=== PATIENT | female | born 1960 | race Two or more races ===

== ENCOUNTER 2018-03-07 20:30 | Inpatient (IN) ==
[2018-03-08] MEDS ORDERED: Acetaminophen 325 MG Tablet PO PRN (03:58)
[2018-03-08] MEDS ORDERED: Chlorhexidine Gluconate 2% 1 Pack (2 Cloths) TOPICAL PRN (04:00)
[2018-03-08] MEDS: Chlorhexidine Gluconate 2% 1 Pack (2 Cloths) TOPICAL SCH (04:28)
[2018-03-08] MEDS: MethylPREDNISolone Sod Succinate Inj 40 MG/ML Vial IV.PUSH SCH ×3 (05:27→22:17)
--- NOTE | 2018-03-08 05:44 | P.HPIM ---
History of Present Illness Service: [facility] Primary Care Physician: UNKNOWN Chief Complaint: dyspnea History of Present Illness: 58 y/o female with a history of asthma, anxiety, asthma, depression, hypertension, hypercholesterolemia and vertigo presented to the ED with complaints of dyspnea and chest pressure for the past day. She states she just felt like she could not catch her breath. She has a non productive cough, and increase chest pressure with the cough. She denies any associated fever, chills , nausea or vomiting. She states her pcp prescribed her a nebulizer but she has not picked it up and she had no relief from her inhaler. She had a similar event last year where she was hospitalized but has not followed with a electronic field service engineer. Review of Systems All other systems reviewed negative except as stated in [facility] - History History Provided By: Patient - Medical / Surgical Hx Neg / Unobtainable Surgical History: No Previous Surgery - Medical History Medical History: Medical History (Last Updated 03/08/18 @ 05:32 by EMETERIO Manzano) No significant past surgical history Anxiety Asthma Depression Hypercholesterolemia Hypertension Thyroid disease Vertigo - Surgical History Surgical History: Surgical History (Last Updated 03/08/18 @ 05:32 by EMETERIO Manzano) No significant past surgical history - Family History Family History: Family History (Last Updated 03/08/18 @ 05:33 by EMETERIO Manzano) Mother Colon cancer Father Lung cancer - Social History I have reviewed the patient's Social History: Yes - Tobacco History Second Hand Smoke Exposure: No Smoking Status: Never smoker - Alcohol History How Often Do You Have a Drink Containing Alcohol: Never - Substance Use History Substance History: No History of Abuse Medications and Allergies Active Medications: Active Medications Acetaminophen (Tylenol) 650 mg PO Q4H PRN PRN Reason: Temp > 100.4 Albuterol (Duoneb Neb (Amado)) 1 ampul NEB Q6HR WHILE AWAKE NEB AMADO Albuterol (Duoneb Neb (Prn)) 1 ampul NEB Q2HR NEB PRN PRN Reason: sob Chlorhexidine Gluconate (Chlorhexidine 2% Cloth) 3 pack TOPICAL DAILY@0400 AMADO Stop: 03/13/18 03:59 Last Admin: 03/08/18 04:28 Dose: 3 pack Chlorhexidine Gluconate (Chlorhexidine 2% Cloth) 3 pack TOPICAL DAILY@0400 PRN PRN Reason: Extra cloth needed Stop: 03/13/18 03:59 Methylprednisolone Sodium Succinate (Solumedrol Inj) 40 mg IV.PUSH Q8HR AMADO Ondansetron HCl (Zofran Inj) 4 mg IV.PUSH Q6H PRN PRN Reason: NAUSEA OR VOMITING Allergies Allergy/AdvReac Type Severity Reaction Status Date / Time No Known Allergies Allergy Verified 03/07/18 20:59 Home Medications Medication Instructions Recorded Confirmed Type aspirin 81 mg PO DAILY 03/07/18 03/07/18 History calcium carbonate-vit D3-min 1 tab PO BID 03/07/18 03/07/18 History carvedilol 12.5 mg PO BID 03/07/18 03/07/18 History cetirizine 10 mg PO DAILY 03/07/18 03/07/18 History cholecalciferol (vitamin D3) 50,000 unit PO QWEEK 03/07/18 03/07/18 History clonazepam 1 mg PO BID 03/07/18 03/07/18 History ergocalciferol (vitamin D2) 50,000 unit PO QWEEK 03/07/18 03/07/18 History furosemide 20 mg PO DAILY 03/07/18 03/07/18 History hydralazine 10 mg PO QID 03/07/18 03/07/18 History hydroxyzine pamoate 50 mg PO QID 03/07/18 03/07/18 History levothyroxine 50 mcg PO DAILY 03/07/18 03/07/18 History losartan 100 mg PO DAILY 03/07/18 03/07/18 History lurasidone [Latuda] 20 mg PO DAILY 03/07/18 03/07/18 History meclizine 12.5 mg PO TID PRN 03/07/18 03/07/18 History omeprazole 20 mg PO DAILY 03/07/18 03/07/18 History simvastatin 40 mg PO QPM 03/07/18 03/07/18 History Exam Vital signs: Vital Signs 03/08/18 03:34 03/08/18 03:38 03/08/18 04:00 Temperature 98.4 F Pulse Rate 74 71 Respiratory Rate 22 22 Blood Pressure 146/82 H Pulse Oximetry 96 96 98 Intake & Output 03/07/18 03/07/18 03/08/18 06:59 18:59 06:59 Weight 107.1 kg Other: Weight On Admission 107.1 kg Narrative: GENERAL: This is a well-nourished, well-developed patient, in no apparent distress. CARDIOVASCULAR: Regular rate and rhythm without murmurs, gallops, or rubs. RESPIRATORY: Diminished Breath sounds equal bilaterally. No wheezes, rales, or rhonchi. GASTROINTESTINAL: Abdomen soft, non-tender, nondistended. Normal active bowel sounds MUSCULOSKELETAL: Extremities without clubbing, cyanosis, or edema. NEURO: Alert & Oriented x4 to person, place, time, situation. Moves all ext x4 Caprini VTE Risk Assessment Caprini VTE Risk Assessment: Moderate/High Risk (score >= 2) Caprini Risk Assessment Model: Point Value = 1 Point Value = 2 Point Value = 3 Point Value = 5 Age 41-60 Minor surgery BMI > 25 kg/m2 Swollen legs Varicose veins or History of unexplained or recurrent spontaneous Oral contraceptives or hormone replacement Sepsis (< 1 month) Serious lung disease, including pneumonia (< 1 month) Abnormal pulmonary function Acute myocardial infarction Congestive heart failure (< 1 month) History of inflammatory bowel disease Medical patient at bed rest Age 61-74 Arthroscopic surgery Major open surgery (> 45 min) Laparoscopic surgery (> 45 min) Malignancy Confined to bed (> 72 hours) Immobilizing plaster cast Central venous access Age >= 75 History of VTE Family history of VTE Factor V Leiden Prothrombin [id number] Lupus anticoagulant Anticardiolipin antibodies Elevated serum homocysteine Heparin-induced thrombocytopenia Other congenital or acquired thrombophilia Stroke (< 1 month) Elective arthroplasty Hip, pelvis, or leg fracture Acute spinal cord injury (< 1 month) Prophylaxis Regimen: Total Risk Factor Score Risk Level Prophylaxis Regimen 0-1 Low Early ambulation 2 Moderate Order ONE of the following: *Sequential Compression Device (SCD) *Heparin 5000 units SQ BID 3-4 Higher Order ONE of the following medications: *Heparin 5000 units SQ TID *Enoxaparin/Lovenox 40 mg SQ daily (WT < 150 kg, CrCl > 30 mL/min) *Enoxaparin/Lovenox 30 mg SQ daily (WT < 150 kg, CrCl > 10-29 mL/min) *Enoxaparin/Lovenox 30 mg SQ BID (WT < 150 kg, CrCl > 30 mL/min) AND/OR *Sequential Compression Device (SCD) 5 or more Highest Order ONE of the following medications: *Heparin 5000 units SQ TID (Preferred with Epidurals) *Enoxaparin/Lovenox 40 mg SQ daily (WT < 150 kg, CrCl > 30 mL/min) *Enoxaparin/Lovenox 30 mg SQ daily (WT < 150 kg, CrCl > 10-29 mL/min) *Enoxaparin/Lovenox 30 mg SQ BID (WT < 150 kg, CrCl > 30 mL/min) AND *Sequential Compression Device (SCD) Assessment and Plan - Plan 58 y/o female with a history of asthma, anxiety, asthma, depression, hypertension, hypercholesterolemia and vertigo presented to the ED with complaints of dyspnea and chest pressure for the past day. Asthma exacerbation -Solumedrol IV -Consult to pulmonology for evaluation -Duonebs -O2 as needed Chest pain, atypical, likely due to asthma, r/o acs troponin .02 -Serial troponin and ekgs Hypertension urgency, likely due to missed medication -Patient given IV Apresoline in ED -Resume home medications when med rec is complete -Monitor vitals and telemetry DVT prophylaxis: Heparin Discussed Condition With: Patient and RN H&P: Quality - VTE Deep Vein Thrombosis/Pulmonary Embolism Present on Admission: No
[2018-03-08 05:45] LABS: Creatine Kinase 110 U/L (26-192)
[2018-03-08] MEDS: Heparin - SQ 10,000 UNITS/ML Vial SQ SCH ×2 (09:19→20:45)
[2018-03-08 12:12] LABS: Creatine Kinase 110 U/L (26-192)
[2018-03-08] MEDS: Azithromycin Inj 500 MG in Sodium Chlor 0.9% Inj 250 ML IV.SIG SCH (15:42)
--- NOTE | 2018-03-08 16:11 | P.PNADD ---
Addendum to Inpatient Note Reason for Addendum: Additional Documentation Additional information: Patient seen Is in no acute distress while resting, has tight breath sounds bilaterally with profound wheezing heard, minimal conversive dyspnea Pulmonology has seen the patient, continue IV steroids, may need a few more days
[2018-03-08] MEDS ORDERED: Dextrose 50% in Water 50 ML Vial IV.PUSH PRN (18:43)
[2018-03-08] MEDS: Budesonide-Formoterol 160/4.5 MCG 6 GM Inhaler INH SCH (20:45)
[2018-03-08] MEDS: Insulin NovoLOG Aspart Correctional Sugar Inj SQ SCH (20:46)
[2018-03-09] MEDS: Chlorhexidine Gluconate 2% 1 Pack (2 Cloths) TOPICAL SCH (03:56)
[2018-03-09] MEDS: MethylPREDNISolone Sod Succinate Inj 40 MG/ML Vial IV.PUSH SCH ×3 (05:59→21:47)
[2018-03-09 07:53] LABS: Baso % (Auto) 0.1 % (0.0-2.0); Hematocrit 38.5 % (35.0-46.0); Hemoglobin 12.6 gm/dL (11.6-15.3); Lymph # (Auto) 1.9 th/mm3 (1.0-4.8); Lymph % (Auto) 10.8 % (9.0-44.0); Mean Corpuscular HGB Conc 32.8 % (32.0-36.0); Mean Corpuscular Hemoglobin 26.2 pg (27.0-34.0); Mean Corpuscular Volume 79.7 fL (80.0-100.0); Mean Platelet Volume 8.7 fL (7.0-11.0); Mono # (Auto) 1.1 th/mm3 (0.0-0.9); Mono % (Auto) 6.5 % (0.0-8.0); Neut # (Auto) 14.4 th/mm3 (1.8-7.7); Neut % (Auto) 82.6 % (16.0-70.0); Platelet Count 330 th/mm3 (150-450); Red Blood Count 4.83 mil/mm3 (4.00-5.30); Red Cell Distribution Width 15.3 % (11.6-17.2); White Blood Count 17.4 th/mm3 (4.0-11.0)
[2018-03-09 08:29] LABS: Anion Gap 9 meq/L (5-15); Blood Urea Nitrogen 22 mg/dL (7-18); Calcium 8.8 mg/dL (8.5-10.1); Carbon Dioxide 29.3 meq/L (21.0-32.0); Chloride 105 meq/L (98-107); Glomerular Filtration Rate Greater Than 89 mL/min (>89); Glucose,Random 150 mg/dL (74-106); Sodium 143 meq/L (136-145)
[2018-03-09] MEDS: Insulin NovoLOG Aspart Correctional Sugar Inj SQ SCH ×4 (09:12→20:47)
[2018-03-09] MEDS: Heparin - SQ 10,000 UNITS/ML Vial SQ SCH ×2 (09:12→20:46)
[2018-03-09] MEDS: Budesonide-Formoterol 160/4.5 MCG 6 GM Inhaler INH SCH ×2 (09:12→20:48)
--- NOTE | 2018-03-09 11:51 | P.PN ---
Subjective Interval history: She had some reaction when the IV antibiotic was given. On O2 2l. Still wheezing, and has a cough. Physical Exam Vital signs: Vital Signs 03/08/18 12:00 03/08/18 14:12 03/08/18 16:00 Temperature 97.2 F L 97.3 F L Pulse Rate 76 86 102 H Respiratory Rate 20 14 18 Blood Pressure 168/86 H 177/82 H Pulse Oximetry 92 L 90 L 03/08/18 19:00 03/08/18 20:00 03/09/18 00:00 Temperature 97.8 F 97.9 F Pulse Rate 103 H 160 H 96 H Respiratory Rate 20 20 20 Blood Pressure 139/80 161/80 H Pulse Oximetry 93 L 93 L 94 L 03/09/18 04:00 03/09/18 07:25 03/09/18 08:00 Temperature 97.6 F 97.7 F Pulse Rate 82 82 78 Respiratory Rate 20 16 20 Blood Pressure 171/82 H 163/97 H Pulse Oximetry 95 94 L 95 Intake & Output 03/08/18 03/09/18 03/09/18 18:59 06:59 18:59 Intake Total 250 / 250 480 / 480 Output Total 900 / 900 Balance 250 / 250 -420 / -420 Weight 107.6 kg Intake: IV 250 / 250 Azithromycin Inj 500 MG In NS 250 / 250 Inj 250 ML @ 250 mls/hr IV.SIG Q24H [facility] Rx#:[id number] Oral 480 / 480 Output: Urine 900 / 900 Narrative: GENERAL: This is a overweight mid female patient, in no apparent distress. CARDIOVASCULAR: Regular rate and rhythm without murmurs, gallops, or rubs. RESPIRATORY: Diminished Breath sounds equal bilaterally. Bilateral Exp wheezes. GASTROINTESTINAL: Abdomen soft, non-tender, nondistended. Normal active bowel sounds MUSCULOSKELETAL: Extremities without clubbing, cyanosis, or edema. NEURO: Alert & Oriented x4 to person, place, time, situation. Moves all ext x4 Results - Labs CBC & Chem 7: 03/09/18 07:06 03/09/18 07:06 Laboratory Results - last 24 hr 03/08/18 03/08/18 03/09/18 11:07 17:35 07:06 WBC 17.4 H RBC 4.83 Hgb 12.6 Hct 38.5 MCV 79.7 L MCH 26.2 L MCHC 32.8 RDW 15.3 Plt Count 330 MPV 8.7 Neut % (Auto) 82.6 H Lymph % (Auto) 10.8 [place] % (Auto) 6.5 Eos % (Auto) 0.0 Baso % (Auto) 0.1 Neut # (Auto) 14.4 H Lymph # (Auto) 1.9 [place] # (Auto) 1.1 H Eos # (Auto) 0.0 Baso # (Auto) 0.0 WBC Differential . Differential Comment Auto diff final Sodium Potassium Chloride Carbon Dioxide Anion Gap BUN Creatinine Estimated GFR POC Glucose 194 H Random Glucose Calcium Total Creatine Kinase 110 Troponin I Less than 0.02 L 03/09/18 07:06 WBC RBC Hgb Hct MCV MCH MCHC RDW Plt Count MPV Neut % (Auto) Lymph % (Auto) [place] % (Auto) Eos % (Auto) Baso % (Auto) Neut # (Auto) Lymph # (Auto) [place] # (Auto) Eos # (Auto) Baso # (Auto) WBC Differential Differential Comment Sodium 143 Potassium 4.0 Chloride 105 Carbon Dioxide 29.3 Anion Gap 9 BUN 22 H Creatinine 0.67 Estimated GFR Greater than 89 POC Glucose Random Glucose 150 H Calcium 8.8 Total Creatine Kinase Troponin I Assessment and Plan - Assessment (1) Asthmatic bronchitis Code(s): J45.909 - Unspecified asthma, uncomplicated Status: Acute (2) Anxiety Code(s): F41.9 - Anxiety disorder, unspecified Status: Acute (3) Hypertension Code(s): I10 - Essential (primary) hypertension Status: Acute (4) Obesity Code(s): E66.9 - Obesity, unspecified Status: Acute - Plan 1. O2 2l N/C . 2. Duoneb nebs qid. 3. Solumderol 40 mg IV Q8H 4. Zithromax 500 mg PO daily X 5 5. Symbicort 160/4.5 mcg, 2 puffs BID 6. PFT with Bronchodilator
--- NOTE | 2018-03-09 12:02 | MB ---
cc: Javy Mccoy MD DATE: 03/08/2018 REASON FOR CONSULTATION: Wheezing, asthma, and shortness of breath. HISTORY OF PRESENT ILLNESS: This is a 58-year-old lady who has had a past history of asthma and hypertension. She was admitted to the emergency room with persistent wheezing, cough with a little expectoration and some chest tightness for the past week to 2 weeks. The patient denied fevers or chills. She has been using a nebulizer and an inhaler, but experienced no relief and thus came to the emergency room for evaluation. Upon arrival, a chest x-ray was done which showed no active pulmonary infiltrates. The patient was started on nebulized bronchodilators, IV antibiotic, as well as IV Solu-Medrol. She is on oxygen at 2 liters. She states her wheezing is still present. Denies hemoptysis. Denies leg swelling or calf muscle pains. PAST MEDICAL HISTORY: Has included a history of hypertension, history of hypothyroidism, history of anxiety and depression, history of hyperlipidemia, and obesity. PAST SURGICAL HISTORY: The patient has had no surgeries in the past. HABITS: The patient does not smoke. No history of alcohol use. FAMILY HISTORY: Father had a history of lung cancer and was a smoker. Mother had colon cancer. MEDICATIONS: 1. Carvedilol 12.5 mg b.i.d. 2. Aspirin 81 mg a day. 3. Cetirizine 10 mg daily. 4. Clonazepam 1 mg b.i.d. 5. Vitamin D2 50,000 units weekly. 6. Lasix 20 mg daily. 7. Hydralazine 10 mg q.i.d. 8. Hydroxyzine 50 mg q.i.d. p.r.n. 9. Levothyroxine 50 mcg a day. 10. Losartan 100 mg daily. 11. Latuda 20 mg a day. 12. Meclizine 0.5 mg p.r.n. 13. Omeprazole 20 mg a day. 14. Simvastatin 40 mg daily. ALLERGIES: NO DRUG ALLERGIES ARE LISTED. REVIEW OF SYSTEMS: The patient is overweight. She has postnasal drip, sinusitis, hoarseness, wheezing, epigastric distress with reflux. She has had joint pains and denies urinary symptoms. Has anxiety and depression. Denies skin lesion. PHYSICAL EXAMINATION: GENERAL: Obese, middle-aged lady, who is in no acute distress. VITAL SIGNS: Blood pressure 130/70, pulse is 90, respirations 22, temperature is 98.2. HEENT: Head is normocephalic. Pupils are reactive. Nasal mucosa injected. Ears, no inflammation. Throat was clear. NECK: Supple with no lymphadenopathy. No bruits. No venous distention. CHEST: Equal movements with distant breath sounds and expiratory wheezes throughout both lung matta with prolonged expirations. HEART: Sounds are regular. S1 and S2. No murmur. No S3. ABDOMEN: Obese, protuberant without masses. No organomegaly or tenderness. Bowel sounds are active. EXTREMITIES: No edema. Peripheral pulses are well felt. No calf tenderness. Reflexes 1+ with no gross motor or sensory deficits. NEUROLOGIC: Cranial nerves grossly intact. The patient is alert and oriented with normal affect. IMPRESSION: 1. Asthmatic bronchitis. 2. Allergic rhinitis and sinusitis. 3. Possible obstructive sleep apnea. 4. Hypertension. PLAN: The patient will be continued on O2 at 2 liters and wean down. We will continue with Symbicort 160/4.5 mcg 2 puffs twice a day. Zithromax 500 mg IV daily was added and the patient will be placed on Solu-Medrol 40 mg IV every 8 hours. A bedside pulmonary function study to be done and hopefully weaned off the oxygen over the next day or two. The patient will continue with the DuoNeb solution in the nebulizer every 6 hours and p.r.n. Thank you for this consultation. MD RADHA Hearn/lanny , 11:28 AM , 11:40 AM
[2018-03-09] MEDS: Azithromycin Inj 500 MG in Sodium Chlor 0.9% Inj 250 ML IV.SIG SCH (13:03)
--- NOTE | 2018-03-09 13:53 | P.PN ---
Subjective Interval history: Follow-up for asthma/bronchitis: Short of breath with activity, still with some wheezing, nonproductive cough. No chest pain. No fever overnight. Complaint of shortness of breath yesterday after Zithromax, it was thought to be a reaction. Patient had received a prior dose without any adverse reaction. Denies any rashes. Physical Exam Vital signs: Vital Signs 03/08/18 14:12 03/08/18 16:00 03/08/18 19:00 Temperature 97.3 F L Pulse Rate 86 102 H 103 H Respiratory Rate 14 18 20 Blood Pressure 177/82 H Pulse Oximetry 90 L 93 L 03/08/18 20:00 03/09/18 00:00 03/09/18 04:00 Temperature 97.8 F 97.9 F 97.6 F Pulse Rate 160 H 96 H 82 Respiratory Rate 20 20 20 Blood Pressure 139/80 161/80 H 171/82 H Pulse Oximetry 93 L 94 L 95 03/09/18 07:25 03/09/18 08:00 03/09/18 12:00 Temperature 97.7 F 97.7 F Pulse Rate 82 78 78 Respiratory Rate 16 20 20 Blood Pressure 163/97 H 180/96 H Pulse Oximetry 94 L 95 95 03/09/18 13:30 Temperature Pulse Rate 76 Respiratory Rate 16 Blood Pressure Pulse Oximetry Intake & Output 03/08/18 03/09/18 03/09/18 18:59 06:59 18:59 Intake Total 250 / 250 480 / 480 Output Total 900 / 900 Balance 250 / 250 -420 / -420 Weight 107.6 kg Intake: IV 250 / 250 Azithromycin Inj 500 MG In NS 250 / 250 Inj 250 ML @ 250 mls/hr IV.SIG Q24H [facility] Rx#:[id number] Oral 480 / 480 Output: Urine 900 / 900 Narrative: GENERAL: Moderately obese female. No apparent distress SKIN: Warm and dry. HEAD: Atraumatic. Normocephalic. EYES: Pupils equal and round. No scleral icterus. No injection or drainage. ENT: No nasal bleeding or discharge. Mucous membranes pink and moist. NECK: Trachea midline. No JVD. CARDIOVASCULAR: Regular rate and rhythm. RESPIRATORY: Diffuse rhonchi with expiratory wheezing. GASTROINTESTINAL: Abdomen soft, non-tender, nondistended. Hepatic and splenic margins not palpable. MUSCULOSKELETAL: Extremities without clubbing, cyanosis, or edema. No obvious deformities. NEUROLOGICAL: Awake and alert. No obvious cranial nerve deficits. Motor grossly within normal limits. Five out of 5 muscle strength in the arms and legs. Normal speech. PSYCHIATRIC: Appropriate mood and affect; insight and judgment normal. Results - Labs CBC & Chem 7: 03/11/18 07:10 03/10/18 08:48 Laboratory Results - last 24 hr 03/08/18 03/09/18 03/09/18 17:35 07:06 07:06 WBC 17.4 H RBC 4.83 Hgb 12.6 Hct 38.5 MCV 79.7 L MCH 26.2 L MCHC 32.8 RDW 15.3 Plt Count 330 MPV 8.7 Neut % (Auto) 82.6 H Lymph % (Auto) 10.8 [place] % (Auto) 6.5 Eos % (Auto) 0.0 Baso % (Auto) 0.1 Neut # (Auto) 14.4 H Lymph # (Auto) 1.9 [place] # (Auto) 1.1 H Eos # (Auto) 0.0 Baso # (Auto) 0.0 WBC Differential . Differential Comment Auto diff final Sodium 143 Potassium 4.0 Chloride 105 Carbon Dioxide 29.3 Anion Gap 9 BUN 22 H Creatinine 0.67 Estimated GFR Greater than 89 POC Glucose 194 H Random Glucose 150 H Calcium 8.8 Assessment and Plan - Assessment (1) Asthmatic bronchitis Code(s): J45.909 - Unspecified asthma, uncomplicated Status: Acute (2) Anxiety Code(s): F41.9 - Anxiety disorder, unspecified Status: Chronic (3) Hypertension Code(s): I10 - Essential (primary) hypertension Status: Chronic (4) Obesity Code(s): E66.9 - Obesity, unspecified Status: Chronic - Plan 58 y/o female with a history of asthma, anxiety, asthma, depression, hypertension, hypercholesterolemia and vertigo presented to the ED with complaints of dyspnea and chest pressure for the past day. Asthma exacerbation Bronchitis -continue IV abx -Continue Solumedrol 40 mg IV every 8 -Appreciate pulmonology input, PFTs have been done -Continue Duonebs -O2 as needed-continue for now, will check walk test tomorrow to see if patient will need on dc Chest pain, atypical, likely due to asthma, r/o acs troponin .02 -Serial troponin and ekgs negative Hypertension urgency, likely due to missed medication Patient given IV Apresoline in ED -Blood pressure remains 180s, will resume home meds when medication reconciliation completed. D/W RN to complete DVT prophylaxis: Heparin Code Status: Full code Discussed Condition With: RN, pt, Discharge Planning: Poss dc 1-2 days (1) Asthmatic bronchitis Qualifiers: Asthma severity: severe Asthma persistence: persistent (3) Hypertension Qualifiers: Hypertension type: essential hypertension Qualified Code(s): I10 - Essential (primary) hypertension (4) Obesity Qualifiers: Obesity classification: adult class 3 (BMI >= 40)
[2018-03-09] MEDS: hydrALAZINE 10 MG Tablet PO SCH ×2 (18:19→20:42)
[2018-03-09] MEDS: clonazePAM 1 MG Tablet PO SCH (20:42)
[2018-03-09] MEDS: Carvedilol 12.5 MG Tablet PO SCH (20:42)
[2018-03-10] MEDS: Chlorhexidine Gluconate 2% 1 Pack (2 Cloths) TOPICAL SCH (03:52)
[2018-03-10] MEDS: MethylPREDNISolone Sod Succinate Inj 40 MG/ML Vial IV.PUSH SCH ×2 (05:36→13:02)
[2018-03-10] MEDS: Levothyroxine 50 MCG Tablet PO SCH (05:36)
[2018-03-10 09:54] LABS: Hematocrit 39.1 % (35.0-46.0); Hemoglobin 12.6 gm/dL (11.6-15.3); Mean Corpuscular HGB Conc 32.3 % (32.0-36.0); Mean Corpuscular Volume 80.4 fL (80.0-100.0); Mean Platelet Volume 8.8 fL (7.0-11.0); Platelet Count 318 th/mm3 (150-450); Red Blood Count 4.86 mil/mm3 (4.00-5.30); Red Cell Distribution Width 15.5 % (11.6-17.2); White Blood Count 14.2 th/mm3 (4.0-11.0)
[2018-03-10 10:18] LABS: Anion Gap 5 meq/L (5-15); Blood Urea Nitrogen 21 mg/dL (7-18); Calcium 8.9 mg/dL (8.5-10.1); Carbon Dioxide 33.7 meq/L (21.0-32.0); Chloride 103 meq/L (98-107); Glomerular Filtration Rate Greater Than 89 mL/min (>89); Glucose,Random 144 mg/dL (74-106); Potassium 4.5 meq/L (3.5-5.1); Sodium 142 meq/L (136-145)
[2018-03-10] MEDS: hydrALAZINE 10 MG Tablet PO SCH ×4 (10:19→21:53)
[2018-03-10] MEDS: Furosemide 20 MG Tablet PO SCH (10:19)
[2018-03-10] MEDS: clonazePAM 1 MG Tablet PO SCH ×2 (10:20→21:53)
[2018-03-10] MEDS: Pantoprazole Sodium 20 MG DR Tablet PO SCH (10:20)
[2018-03-10] MEDS: Insulin NovoLOG Aspart Correctional Sugar Inj SQ SCH ×4 (10:21→21:53)
[2018-03-10] MEDS: Heparin - SQ 10,000 UNITS/ML Vial SQ SCH ×2 (10:21→21:53)
[2018-03-10] MEDS: Carvedilol 12.5 MG Tablet PO SCH ×2 (10:21→21:53)
[2018-03-10] MEDS: Budesonide-Formoterol 160/4.5 MCG 6 GM Inhaler INH SCH ×2 (10:22→21:54)
--- NOTE | 2018-03-10 12:45 | P.PN ---
Subjective Interval history: Follow-up for asthma/bronchitis: Patient seen and examined, indicates that shortness of breath with activity is a little bit better today, less wheezing. Minimal cough. No sputum. No chest pain. No fever overnight. Remains on oxygen at 2 L. Physical Exam Vital signs: Vital Signs 03/09/18 13:30 03/09/18 16:00 03/09/18 19:32 Temperature 98.1 F Pulse Rate 76 83 89 Respiratory Rate 16 20 21 Blood Pressure 193/94 H Pulse Oximetry 95 03/09/18 19:34 03/09/18 20:00 03/09/18 23:52 Temperature 97.7 F Pulse Rate 100 H 62 Respiratory Rate 21 20 Blood Pressure 142/63 H Pulse Oximetry 93 L 92 L 03/09/18 23:53 03/10/18 00:00 03/10/18 03:50 Temperature 97.8 F 97.9 F Pulse Rate 51 L 66 Respiratory Rate 21 22 Blood Pressure 162/86 H 173/44 H Pulse Oximetry 98 95 96 03/10/18 04:00 03/10/18 08:00 03/10/18 09:40 Temperature 97.3 F L Pulse Rate 71 56 L 62 Respiratory Rate 22 20 Blood Pressure 199/88 H Pulse Oximetry 96 97 03/10/18 12:00 Temperature 97.8 F Pulse Rate 80 Respiratory Rate 17 Blood Pressure 165/80 H Pulse Oximetry 94 L Intake & Output 03/09/18 03/10/18 03/10/18 18:59 06:59 18:59 Output Total 400 / 400 Balance -400 / -400 Weight 108.6 kg Output: Urine 400 / 400 Other: # Voids 2 Date of Last Bowel Movement 03/09/18 Narrative: GENERAL: Moderately obese female. No apparent distress SKIN: Warm and dry. HEAD: Atraumatic. Normocephalic. EYES: Pupils equal and round. No scleral icterus. No injection or drainage. ENT: No nasal bleeding or discharge. Mucous membranes pink and moist. NECK: Trachea midline. No JVD. CARDIOVASCULAR: Regular rate and rhythm. RESPIRATORY: Diffuse expiratory wheezing, improved from yesterday GASTROINTESTINAL: Abdomen soft, non-tender, nondistended. Hepatic and splenic margins not palpable. MUSCULOSKELETAL: Extremities without clubbing, cyanosis, or edema. No obvious deformities. NEUROLOGICAL: Awake and alert. No obvious cranial nerve deficits. Motor grossly within normal limits. Five out of 5 muscle strength in the arms and legs. Normal speech. PSYCHIATRIC: Appropriate mood and affect; insight and judgment normal. Results - Labs CBC & Chem 7: 03/11/18 07:10 03/10/18 08:48 Laboratory Results - last 24 hr 03/09/18 03/10/18 03/10/18 17:27 08:48 08:48 WBC 14.2 H RBC 4.86 Hgb 12.6 Hct 39.1 MCV 80.4 MCH 26.0 L MCHC 32.3 RDW 15.5 Plt Count 318 MPV 8.8 Sodium 142 Potassium 4.5 Chloride 103 Carbon Dioxide 33.7 H Anion Gap 5 BUN 21 H Creatinine 0.61 Estimated GFR Greater than 89 POC Glucose 221 H Random Glucose 144 H Calcium 8.9 03/10/18 11:47 WBC RBC Hgb Hct MCV MCH MCHC RDW Plt Count MPV Sodium Potassium Chloride Carbon Dioxide Anion Gap BUN Creatinine Estimated GFR POC Glucose 315 H Random Glucose Calcium Assessment and Plan - Assessment (1) Asthmatic bronchitis Code(s): J45.909 - Unspecified asthma, uncomplicated Status: Acute (2) Anxiety Code(s): F41.9 - Anxiety disorder, unspecified Status: Chronic (3) Hypertension Code(s): I10 - Essential (primary) hypertension Status: Chronic (4) Obesity Code(s): E66.9 - Obesity, unspecified Status: Chronic - Plan 58 y/o female with a history of asthma, anxiety, asthma, depression, hypertension, hypercholesterolemia and vertigo presented to the ED with complaints of dyspnea and chest pressure for the past day. Asthma exacerbation Bronchitis -continue IV abx -Continue Solumedrol 40 mg IV every 8 -Appreciate pulmonology input, PFTs have been done -Continue Duonebs -We will check walk test to see if she will need oxygen on discharge. Chest pain, atypical, likely due to asthma, r/o acs troponin .02 -Serial troponin and ekgs negative Hypertension urgency, likely due to missed medication Patient given IV Apresoline in ED Blood pressure improved, 160s -Continue carvedilol, Cozaar, Lasix DVT prophylaxis: Heparin Consult case management, patient may need oxygen Repeat CBC in the morning, WBC trending down Hopefully we can change to p.o. steroids tomorrow Code Status: Full code Discussed Condition With: RN, pt, CM Discharge Planning: Poss dc tomorrow if sx improved (1) Asthmatic bronchitis Qualifiers: Asthma severity: severe Asthma persistence: persistent (3) Hypertension Qualifiers: Hypertension type: essential hypertension Qualified Code(s): I10 - Essential (primary) hypertension (4) Obesity Qualifiers: Obesity classification: adult class 3 (BMI >= 40)
[2018-03-10] MEDS: Azithromycin Inj 500 MG in Sodium Chlor 0.9% Inj 250 ML IV.SIG SCH (13:02)
--- NOTE | 2018-03-10 18:20 | P.PN ---
Subjective Interval history: Making some progress. Less wheezing. On O2 still. Physical Exam Vital signs: Vital Signs 03/09/18 19:32 03/09/18 19:34 03/09/18 20:00 Temperature 97.7 F Pulse Rate 89 100 H Respiratory Rate 21 21 Blood Pressure 142/63 H Pulse Oximetry 93 L 92 L Pulse Oximetry [Exertion on Room Air] Pulse Oximetry [Resting on Room Air] 03/09/18 23:52 03/09/18 23:53 03/10/18 00:00 Temperature 97.8 F Pulse Rate 62 51 L Respiratory Rate 20 21 Blood Pressure 162/86 H Pulse Oximetry 98 95 Pulse Oximetry [Exertion on Room Air] Pulse Oximetry [Resting on Room Air] 03/10/18 03:50 03/10/18 04:00 03/10/18 08:00 Temperature 97.9 F 97.3 F L Pulse Rate 66 71 57 L Respiratory Rate 22 22 Blood Pressure 173/44 H 199/88 H Pulse Oximetry 96 96 Pulse Oximetry [Exertion on Room Air] Pulse Oximetry [Resting on Room Air] 03/10/18 09:40 03/10/18 12:00 03/10/18 14:47 Temperature 97.8 F Pulse Rate 62 69 Respiratory Rate 20 17 Blood Pressure 165/80 H Pulse Oximetry 97 94 L Pulse Oximetry [Exertion on Room Air] 90 L Pulse Oximetry [Resting on Room Air] 95 03/10/18 14:55 03/10/18 16:00 Temperature 97.6 F Pulse Rate 82 64 Respiratory Rate 20 17 Blood Pressure 167/81 H Pulse Oximetry 92 L Pulse Oximetry [Exertion on Room Air] Pulse Oximetry [Resting on Room Air] Intake & Output 03/09/18 03/10/18 03/10/18 18:59 06:59 18:59 Intake Total 250 / 250 250 / 250 Output Total 400 / 400 Balance -150 / -150 250 / 250 Weight 108.6 kg Intake: IV 250 / 250 250 / 250 Azithromycin Inj 500 MG In NS 250 / 250 250 / 250 Inj 250 ML @ 250 mls/hr IV.SIG Q24H KHALIF Rx#:[id number] Output: Urine 400 / 400 Other: # Voids 2 Date of Last Bowel Movement 03/09/18 Narrative: GENERAL: Moderately obese female. No apparent distress SKIN: Warm and dry. HEAD: Atraumatic. Normocephalic. EYES: Pupils equal and round. No scleral icterus. No injection or drainage. ENT: No nasal bleeding or discharge. Mucous membranes pink and moist. NECK: Trachea midline. No JVD. CARDIOVASCULAR: Regular rate and rhythm. RESPIRATORY:Mild Diffuse expiratory wheezing, improved from yesterday GASTROINTESTINAL: Abdomen soft, non-tender, nondistended. Hepatic and splenic margins not palpable. MUSCULOSKELETAL: Extremities without clubbing, cyanosis, or edema. No obvious deformities. NEUROLOGICAL: Awake and alert. No obvious cranial nerve deficits. Motor grossly within normal limits. Five out of 5 muscle strength in the arms and legs. Normal speech. PSYCHIATRIC: Appropriate mood and affect. Results - Labs CBC & Chem 7: 03/10/18 08:48 03/10/18 08:48 Laboratory Results - last 24 hr 03/10/18 03/10/18 03/10/18 08:48 08:48 11:47 WBC 14.2 H RBC 4.86 Hgb 12.6 Hct 39.1 MCV 80.4 MCH 26.0 L MCHC 32.3 RDW 15.5 Plt Count 318 MPV 8.8 Sodium 142 Potassium 4.5 Chloride 103 Carbon Dioxide 33.7 H Anion Gap 5 BUN 21 H Creatinine 0.61 Estimated GFR Greater than 89 POC Glucose 315 H Random Glucose 144 H Calcium 8.9 03/10/18 17:47 WBC RBC Hgb Hct MCV MCH MCHC RDW Plt Count MPV Sodium Potassium Chloride Carbon Dioxide Anion Gap BUN Creatinine Estimated GFR POC Glucose 172 H Random Glucose Calcium Assessment and Plan - Assessment (1) Asthmatic bronchitis Code(s): J45.909 - Unspecified asthma, uncomplicated Status: Acute (2) Anxiety Code(s): F41.9 - Anxiety disorder, unspecified Status: Chronic (3) Hypertension Code(s): I10 - Essential (primary) hypertension Status: Chronic (4) Obesity Code(s): E66.9 - Obesity, unspecified Status: Chronic - Plan 1. O2 2l N/C and wean to Room air. 2. Duoneb nebs qid. 3. Taper Solumderol 40 mg IV Q12H and D/C to Prednisone in am 4. Zithromax 500 mg PO daily X 2 5. Symbicort 160/4.5 mcg, 2 puffs BID 6. Switch to Po Meds in am (1) Asthmatic bronchitis Qualifiers: Asthma severity: severe Asthma persistence: persistent (3) Hypertension Qualifiers: Hypertension type: essential hypertension Qualified Code(s): I10 - Essential (primary) hypertension (4) Obesity Qualifiers: Obesity classification: adult class 3 (BMI >= 40)
[2018-03-11] MEDS ORDERED: MethylPREDNISolone Sod Succinate Inj 40 MG/ML Vial IV.PUSH SCH (01:00)
[2018-03-11] MEDS: Levothyroxine 50 MCG Tablet PO SCH (05:17)
[2018-03-11] MEDS: Chlorhexidine Gluconate 2% 1 Pack (2 Cloths) TOPICAL SCH (05:18)
[2018-03-11 08:54] LABS: Hematocrit 37.3 % (35.0-46.0); Hemoglobin 11.7 gm/dL (11.6-15.3); Mean Corpuscular HGB Conc 31.3 % (32.0-36.0); Mean Corpuscular Hemoglobin 25.5 pg (27.0-34.0); Mean Corpuscular Volume 81.6 fL (80.0-100.0); Mean Platelet Volume 8.6 fL (7.0-11.0); Platelet Count 290 th/mm3 (150-450); Red Blood Count 4.57 mil/mm3 (4.00-5.30); Red Cell Distribution Width 15.6 % (11.6-17.2); White Blood Count 11.6 th/mm3 (4.0-11.0)
[2018-03-11] MEDS: Furosemide 20 MG Tablet PO SCH (09:33)
[2018-03-11] MEDS: Carvedilol 12.5 MG Tablet PO SCH ×2 (09:34→21:16)
[2018-03-11] MEDS: predniSONE 20 MG Tablet PO SCH ×2 (09:34→21:16)
[2018-03-11] MEDS: hydrALAZINE 10 MG Tablet PO SCH ×4 (09:34→21:17)
[2018-03-11] MEDS: Pantoprazole Sodium 20 MG DR Tablet PO SCH (09:34)
[2018-03-11] MEDS: Heparin - SQ 10,000 UNITS/ML Vial SQ SCH ×2 (09:35→21:17)
[2018-03-11] MEDS: Insulin NovoLOG Aspart Correctional Sugar Inj SQ SCH ×4 (09:36→22:26)
[2018-03-11] MEDS: clonazePAM 1 MG Tablet PO SCH ×2 (09:37→21:17)
[2018-03-11] MEDS: Budesonide-Formoterol 160/4.5 MCG 6 GM Inhaler INH SCH ×2 (09:37→21:18)
--- NOTE | 2018-03-11 11:14 | P.PN ---
Subjective Interval history: Follow-up for asthma/bronchitis: Patient seen and examined, less shortness of breath and wheezing. Oxygen has been weaned down to 1 L. No fever. Increased coughing overnight. No nausea, no vomiting, no diarrhea. Physical Exam Vital signs: Vital Signs 03/10/18 12:00 03/10/18 14:47 03/10/18 14:55 Temperature 97.8 F Pulse Rate 69 82 Respiratory Rate 17 20 Blood Pressure 165/80 H Pulse Oximetry 94 L Pulse Oximetry [Exertion on Room Air] 90 L Pulse Oximetry [Resting on Room Air] 95 03/10/18 16:00 03/10/18 18:46 03/10/18 20:00 Temperature 97.6 F 97.8 F Pulse Rate 64 64 71 Respiratory Rate 17 17 21 Blood Pressure 167/81 H 175/84 H Pulse Oximetry 92 L 96 92 L Pulse Oximetry [Exertion on Room Air] Pulse Oximetry [Resting on Room Air] 03/11/18 00:00 03/11/18 04:00 03/11/18 08:00 Temperature 97.7 F 97.8 F 97.8 F Pulse Rate 65 60 73 Respiratory Rate 21 20 16 Blood Pressure 129/70 146/70 H 156/74 H Pulse Oximetry 92 L 92 L 98 Pulse Oximetry [Exertion on Room Air] Pulse Oximetry [Resting on Room Air] 03/11/18 08:31 Temperature Pulse Rate 52 L Respiratory Rate 18 Blood Pressure Pulse Oximetry 98 Pulse Oximetry [Exertion on Room Air] Pulse Oximetry [Resting on Room Air] Intake & Output 03/10/18 03/11/18 03/11/18 18:59 06:59 18:59 Intake Total 850 / 850 960 / 960 Balance 850 / 850 960 / 960 Weight 108.8 kg Intake: IV 250 / 250 Azithromycin Inj 500 MG In NS 250 / 250 Inj 250 ML @ 250 mls/hr IV.SIG Q24H KHALIF Rx#:[id number] Oral 600 / 600 960 / 960 Other: # Voids 900 4 Date of Last Bowel Movement 03/10/18 03/10/18 03/10/18 # Bowel Movements 1 Narrative: GENERAL: Moderately obese female. No apparent distress SKIN: Warm and dry. HEAD: Atraumatic. Normocephalic. EYES: Pupils equal and round. No scleral icterus. No injection or drainage. ENT: No nasal bleeding or discharge. Mucous membranes pink and moist. NECK: Trachea midline. No JVD. CARDIOVASCULAR: Regular rate and rhythm. RESPIRATORY:Mild Diffuse expiratory wheezing GASTROINTESTINAL: Abdomen soft, non-tender, nondistended. Hepatic and splenic margins not palpable. MUSCULOSKELETAL: Extremities without clubbing, cyanosis, or edema. No obvious deformities. NEUROLOGICAL: Awake and alert. No obvious cranial nerve deficits. Motor grossly within normal limits. Five out of 5 muscle strength in the arms and legs. Normal speech. PSYCHIATRIC: Appropriate mood and affect. Results - Labs CBC & Chem 7: 03/11/18 07:10 03/10/18 08:48 Laboratory Results - last 24 hr 03/10/18 03/10/18 03/10/18 11:47 17:47 21:48 WBC RBC Hgb Hct MCV MCH MCHC RDW Plt Count MPV POC Glucose 315 H 172 H 165 H 03/11/18 03/11/18 07:10 07:17 WBC 11.6 H RBC 4.57 Hgb 11.7 Hct 37.3 MCV 81.6 MCH 25.5 L MCHC 31.3 L RDW 15.6 Plt Count 290 MPV 8.6 POC Glucose 148 H Assessment and Plan - Assessment (1) Asthmatic bronchitis Code(s): J45.909 - Unspecified asthma, uncomplicated Status: Acute (2) Anxiety Code(s): F41.9 - Anxiety disorder, unspecified Status: Chronic (3) Hypertension Code(s): I10 - Essential (primary) hypertension Status: Chronic (4) Obesity Code(s): E66.9 - Obesity, unspecified Status: Chronic - Plan 58 y/o female with a history of asthma, anxiety, asthma, depression, hypertension, hypercholesterolemia and vertigo presented to the ED with complaints of dyspnea and chest pressure for the past day. Asthma exacerbation Bronchitis -Change to Prednisone 20 mg PO BID -Appreciate pulmonology input, PFTs have been done -Continue Duonebs -wean off oxgygen -Add Tessalon Perles 100mg PO TID PRN cough -on PO abx now Chest pain, atypical, likely due to asthma, r/o acs troponin .02 -Serial troponin and ekgs negative Hypertension urgency, likely due to missed medication Patient given IV Apresoline in ED Blood pressure improved -Continue carvedilol, Cozaar, Lasix DVT prophylaxis: Heparin WBC trending wean off oxygen Plan to dc tomorrow Code Status: Full code Discussed Condition With: RN, pt, CM Discharge Planning: Discharge home tomorrow (1) Asthmatic bronchitis Qualifiers: Asthma severity: severe Asthma persistence: persistent (3) Hypertension Qualifiers: Hypertension type: essential hypertension Qualified Code(s): I10 - Essential (primary) hypertension (4) Obesity Qualifiers: Obesity classification: adult class 3 (BMI >= 40)
[2018-03-11] MEDS ORDERED: Azithromycin 250 MG Tablet PO SCH (13:00)
[2018-03-11] MEDS: Benzonatate 100 MG Capsule PO PRN ×2 (13:25→21:16)
--- NOTE | 2018-03-11 19:50 | P.PN ---
Subjective Interval history: Doing better today. On o2 1 L Less wheezing. No chest pain. Physical Exam Vital signs: Vital Signs 03/10/18 20:00 03/11/18 00:00 03/11/18 04:00 Temperature 97.8 F 97.7 F 97.8 F Pulse Rate 71 65 60 Respiratory Rate 21 21 20 Blood Pressure 175/84 H 129/70 146/70 H Pulse Oximetry 92 L 92 L 92 L 03/11/18 08:00 03/11/18 08:31 03/11/18 11:27 Temperature 97.8 F Pulse Rate 73 52 L Respiratory Rate 16 18 Blood Pressure 156/74 H Pulse Oximetry 98 98 03/11/18 12:00 03/11/18 14:38 03/11/18 16:00 Temperature 97.2 F L 97.3 F L Pulse Rate 69 59 L 53 L Respiratory Rate 16 18 16 Blood Pressure 166/71 H 168/72 H Pulse Oximetry 94 L 97 03/11/18 17:55 Temperature Pulse Rate 52 L Respiratory Rate Blood Pressure 156/72 H Pulse Oximetry Intake & Output 03/11/18 03/11/18 03/12/18 06:59 18:59 06:59 Intake Total 960 / 960 720 / 720 Output Total 800 / 800 Balance 960 / 960 -80 / -80 Weight 108.8 kg Intake: Oral 960 / 960 720 / 720 Output: Urine 800 / 800 Other: # Voids 4 Date of Last Bowel Movement 03/10/18 03/11/18 # Bowel Movements 1 Narrative: GENERAL: Moderately obese female. No apparent distress SKIN: Warm and dry. HEAD: Atraumatic. Normocephalic. EYES: Pupils equal and round. No scleral icterus. No injection or drainage. ENT: No nasal bleeding or discharge. Mucous membranes pink and moist. NECK: Trachea midline. No JVD. CARDIOVASCULAR: Regular rate and rhythm. RESPIRATORY: Diffuse expiratory wheezing, distant breath sounds. GASTROINTESTINAL: Abdomen soft, non-tender, nondistended. Hepatic and splenic margins not palpable. MUSCULOSKELETAL: Extremities without clubbing, cyanosis, or edema. No obvious deformities. NEUROLOGICAL: Awake and alert. No obvious cranial nerve deficits. Motor grossly within normal limits. Normal speech. PSYCHIATRIC: Appropriate mood and affect; insight and judgment normal. Results - Labs CBC & Chem 7: 03/11/18 07:10 03/10/18 08:48 Laboratory Results - last 24 hr 03/10/18 03/11/18 03/11/18 21:48 07:10 07:17 WBC 11.6 H RBC 4.57 Hgb 11.7 Hct 37.3 MCV 81.6 MCH 25.5 L MCHC 31.3 L RDW 15.6 Plt Count 290 MPV 8.6 POC Glucose 165 H 148 H 03/11/18 03/11/18 11:43 17:14 WBC RBC Hgb Hct MCV MCH MCHC RDW Plt Count MPV POC Glucose 276 H 192 H Assessment and Plan - Assessment (1) Asthmatic bronchitis Code(s): J45.909 - Unspecified asthma, uncomplicated Status: Acute (2) Anxiety Code(s): F41.9 - Anxiety disorder, unspecified Status: Chronic (3) Hypertension Code(s): I10 - Essential (primary) hypertension Status: Chronic (4) Obesity Code(s): E66.9 - Obesity, unspecified Status: Chronic - Plan 1. O2 2l N/C and wean to Room air. 2. Duoneb nebs qid. 3. D/C Solumderol and add Prednisone 20 mg BID 4. Zithromax 500 mg PO daily X 2 5. Symbicort 160/4.5 mcg, 2 puffs BID 6. Ambulate in richard. (1) Asthmatic bronchitis Qualifiers: Asthma severity: severe Asthma persistence: persistent (3) Hypertension Qualifiers: Hypertension type: essential hypertension Qualified Code(s): I10 - Essential (primary) hypertension (4) Obesity Qualifiers: Obesity classification: adult class 3 (BMI >= 40)
[2018-03-12] MEDS: Chlorhexidine Gluconate 2% 1 Pack (2 Cloths) TOPICAL SCH (04:51)
[2018-03-12] MEDS: Levothyroxine 50 MCG Tablet PO SCH (05:25)
[2018-03-12] MEDS: Heparin - SQ 10,000 UNITS/ML Vial SQ SCH (08:23)
[2018-03-12] MEDS: hydrALAZINE 10 MG Tablet PO SCH (08:24)
[2018-03-12] MEDS: Carvedilol 12.5 MG Tablet PO SCH (08:24)
[2018-03-12] MEDS: Furosemide 20 MG Tablet PO SCH (08:24)
[2018-03-12] MEDS: predniSONE 20 MG Tablet PO SCH (08:24)
[2018-03-12] MEDS: Pantoprazole Sodium 20 MG DR Tablet PO SCH (08:25)
[2018-03-12] MEDS: Budesonide-Formoterol 160/4.5 MCG 6 GM Inhaler INH SCH (08:25)
[2018-03-12] MEDS: clonazePAM 1 MG Tablet PO SCH (08:25)
[2018-03-12] MEDS: Insulin NovoLOG Aspart Correctional Sugar Inj SQ SCH (08:49)
--- NOTE | 2018-03-12 09:05 | P.PN ---
Subjective Interval history: Follow-up for asthma/bronchitis: Patient seen and examined, ambulating in room. On room air, sats 96%. Less wheezing and shortness of breath. She is ambulating a small distances. No fever. Looking forward to going home. States that someone can pick her up this afternoon Physical Exam Vital signs: Vital Signs 03/11/18 11:27 03/11/18 12:00 03/11/18 14:38 Temperature 97.2 F L Pulse Rate 69 59 L Respiratory Rate 16 18 Blood Pressure 166/71 H Pulse Oximetry 98 94 L 03/11/18 16:00 03/11/18 17:55 03/11/18 20:00 Temperature 97.3 F L 97.9 F Pulse Rate 53 L 52 L 79 Respiratory Rate 16 18 Blood Pressure 168/72 H 156/72 H 165/75 H Pulse Oximetry 97 96 03/11/18 20:38 03/12/18 00:00 03/12/18 04:00 Temperature 97.7 F 97.4 F L Pulse Rate 62 45 L 56 L Respiratory Rate 15 18 18 Blood Pressure 152/71 H 142/62 H Pulse Oximetry 99 98 98 03/12/18 07:47 03/12/18 08:00 Temperature 97.6 F Pulse Rate 55 L 58 L Respiratory Rate 18 16 Blood Pressure 127/79 Pulse Oximetry 90 L 95 Intake & Output 03/11/18 03/12/18 03/12/18 18:59 06:59 18:59 Intake Total 720 / 720 1150 / 1150 Output Total 800 / 800 Balance -80 / -80 1150 / 1150 Weight 108.8 kg Intake: Oral 720 / 720 1150 / 1150 Output: Urine 800 / 800 Other: # Voids 6 Date of Last Bowel Movement 03/11/18 03/11/18 # Bowel Movements 1 Narrative: GENERAL: Moderately obese female. No apparent distress SKIN: Warm and dry. HEAD: Atraumatic. Normocephalic. EYES: Pupils equal and round. No scleral icterus. No injection or drainage. ENT: No nasal bleeding or discharge. Mucous membranes pink and moist. NECK: Trachea midline. No JVD. CARDIOVASCULAR: Regular rate and rhythm. RESPIRATORY: Diffuse expiratory wheezing, distant breath sounds. GASTROINTESTINAL: Abdomen soft, non-tender, nondistended. Hepatic and splenic margins not palpable. MUSCULOSKELETAL: Extremities without clubbing, cyanosis, or edema. No obvious deformities. NEUROLOGICAL: Awake and alert. No obvious cranial nerve deficits. Motor grossly within normal limits. Normal speech. PSYCHIATRIC: Appropriate mood and affect; insight and judgment normal. Results - Labs CBC & Chem 7: 03/11/18 07:10 03/10/18 08:48 Laboratory Results - last 24 hr 03/11/18 03/11/18 11:43 17:14 POC Glucose 276 H 192 H Assessment and Plan - Assessment (1) Asthmatic bronchitis Code(s): J45.909 - Unspecified asthma, uncomplicated Status: Acute (2) Anxiety Code(s): F41.9 - Anxiety disorder, unspecified Status: Chronic (3) Hypertension Code(s): I10 - Essential (primary) hypertension Status: Chronic (4) Obesity Code(s): E66.9 - Obesity, unspecified Status: Chronic - Plan 58 y/o female with a history of asthma, anxiety, asthma, depression, hypertension, hypercholesterolemia and vertigo presented to the ED with complaints of dyspnea and chest pressure for the past day. Asthma exacerbation Bronchitis -Continue Prednisone 20 mg PO BID -Appreciate pulmonology input, PFTs have been done -Continue Duonebs -wean off oxgygen -Tessalon Perles 100mg PO TID PRN cough -on PO abx now Chest pain, atypical, likely due to asthma, r/o acs troponin .02 -Serial troponin and ekgs negative Hypertension urgency, likely due to missed medication Patient given IV Apresoline in ED Blood pressure improved -Continue carvedilol, Cozaar, Lasix DVT prophylaxis: Heparin off oxygen now Symptoms improved DC this afternoon cleared by pulm F/U Dr. Mccoy next week Has nebulizer at home, continue with tx PRN Diabetic diet Activity as tolerated Instructed to wait at least 7-10 before flying to [place] Code Status: Full code Discussed Condition With: RN, pt, CM Discharge Planning: Plan to discharge this afternoon. (1) Asthmatic bronchitis Qualifiers: Asthma severity: severe Asthma persistence: persistent (3) Hypertension Qualifiers: Hypertension type: essential hypertension Qualified Code(s): I10 - Essential (primary) hypertension (4) Obesity Qualifiers: Obesity classification: adult class 3 (BMI >= 40)
--- NOTE | 2018-03-12 13:53 | P.DS ---
Date of admission: 03/11/18 10:49 Primary care physician: UNKNOWN Attending physician on discharge: Monisha Castillo Anticipated date of discharge: 03/12/18 Brief History from admission: 58 y/o female with a history of asthma, anxiety, asthma, depression, hypertension, hypercholesterolemia and vertigo presented to the ED with complaints of dyspnea and chest pressure for the past day. She states she just felt like she could not catch her breath. She has a non productive cough, and increase chest pressure with the cough. She denies any associated fever, chills , nausea or vomiting. She states her pcp prescribed her a nebulizer but she has not picked it up and she had no relief from her inhaler. She had a similar event last year where she was hospitalized but has not followed with a weight shifter. DS: Diagnosis - Discharge Diagnosis (1) Asthmatic bronchitis Status: Acute (2) Anxiety Status: Chronic (3) Hypertension Status: Chronic (4) Obesity Status: Chronic DS: Medications - Discharge Medications Prescriptions: benzonatate [Tessalon Perles] 100 mg PO Q8H PRN 7 Days #21 cap PRN Reason: Cough budesonide-formoterol [Symbicort] 2 puff INH BID 30 Days #1 g prednisone 20 mg PO BID 8 Days #11 tab DS: Summary Hospital Course: 58 y/o female with a history of asthma, anxiety, asthma, depression, hypertension, hypercholesterolemia and vertigo presented to the ED with complaints of dyspnea and chest pressure for the past day. She felt like she could not catch her breath. She haf a non productive cough, and increase chest pressure with the cough. She denied any associated fever, chills, nausea or vomiting. She stated her pcp prescribed her a nebulizer but she had not picked it up and she had no relief from her inhaler. She had a similar event last year where she was hospitalized but has not followed with a weight shifter. Patient admitted with asthma exacerbation and bronchitis. Started on oxygen, duo nebs, IV steroids. Empiric antibiotics started. Pulmonology was consulted and agreed with plan and order PFTs. She was started on Symbicort. Serial cardiac enzymes completed, chest pain atypical, likely due to asthma. ACS was ruled out. Was noted in hypertensive urgency, she had missed her medications. She was given IV Apresoline in ED. Blood pressure stabilized with her home medications. Over the course of the hospitalization, her symptoms improved. She was able to ambulate small distances with improvement in symptoms. She was weaned off oxygen and sats were 96% on room air. She was changed to oral antibiotics and steroids. She was cleared for discharge by pulmonology and was discharged home in stable condition. She was instructed to follow-up with pulmonology in 7-10 days. - Time Spent with Patient Total time spent providing and/or coordinating discharge services: 35 minutes Greater than 30 minutes - Quality: VTE Deep Vein Thrombosis/Pulmonary Embolism Present on Admission: No Exam Vital signs: Vital Signs 03/11/18 14:38 03/11/18 16:00 03/11/18 17:55 Temperature 97.3 F L Pulse Rate 59 L 53 L 52 L Respiratory Rate 18 16 Blood Pressure 168/72 H 156/72 H Pulse Oximetry 97 03/11/18 20:00 03/11/18 20:38 03/12/18 00:00 Temperature 97.9 F 97.7 F Pulse Rate 79 62 45 L Respiratory Rate 18 15 18 Blood Pressure 165/75 H 152/71 H Pulse Oximetry 96 99 98 03/12/18 04:00 03/12/18 07:47 03/12/18 08:00 Temperature 97.4 F L 97.6 F Pulse Rate 56 L 55 L 58 L Respiratory Rate 18 18 16 Blood Pressure 142/62 H 127/79 Pulse Oximetry 98 90 L 95 03/12/18 11:58 Temperature 97.2 F L Pulse Rate 56 L Respiratory Rate 20 Blood Pressure 154/86 H Pulse Oximetry 95 Intake & Output 03/11/18 03/12/18 03/12/18 18:59 06:59 18:59 Intake Total 720 / 720 1150 / 1150 Output Total 800 / 800 Balance -80 / -80 1150 / 1150 Weight 108.8 kg Intake: Oral 720 / 720 1150 / 1150 Output: Urine 800 / 800 Other: # Voids 6 Date of Last Bowel Movement 03/11/18 03/11/18 # Bowel Movements 1 Results Procedures completed during hospitalization: NONE Labs on day of discharge: Labs from last 24 hours 03/11/18 17:14 POC Glucose 192 H Discharge Plan - Discharge Disposition Patient Disposition: Discharge Home - Discharge Condition Condition: Good - Discharge Order Discharge Orders: Discharge Order (Routine); Ordered 03/12/18 Ordered By: Miya Goode - Discharge Details Anticipated Discharge Date: 03/12/18 - Physicians Team Primary Care Provider: UNKNOWN, Attending Provider: Monisha Castillo Other Providers: Santana Rae MD - Rxs /Orders / Referrals /Forms Prescriptions: New benzonatate [Tessalon Perles] 100 mg Capsule 100 mg PO Q8H PRN (Reason: Cough) 7 Days Qty: 21 RF: 0 budesonide-formoterol [Symbicort] 160-4.5 mcg/actuation Hfa Aerosol Inhaler 2 puff INH BID 30 Days Qty: 1 RF: 0 prednisone 20 mg Tablet 20 mg PO BID 8 Days Qty: 11 RF: 0 Continue aspirin 81 mg Tablet,Delayed Release (Dr/Ec) 81 mg PO DAILY calcium carbonate-vit D3-min 600 mg calcium- 400 unit Tablet 1 tab PO BID carvedilol 12.5 mg Tablet 12.5 mg PO BID cetirizine 10 mg Tablet 10 mg PO DAILY cholecalciferol (vitamin D3) 50,000 unit Capsule 50,000 unit PO QWEEK clonazepam 1 mg Tablet 1 mg PO BID ergocalciferol (vitamin D2) 50,000 unit Capsule 50,000 unit PO QWEEK furosemide 20 mg Tablet 20 mg PO DAILY hydralazine 10 mg Tablet 10 mg PO QID hydroxyzine pamoate 50 mg Capsule 50 mg PO QID levothyroxine 50 mcg Tablet 50 mcg PO DAILY losartan 100 mg Tablet 100 mg PO DAILY lurasidone [Latuda] 20 mg Tablet 20 mg PO DAILY meclizine 12.5 mg Tablet 12.5 mg PO TID PRN (Reason: Dizziness) omeprazole 20 mg Capsule,Delayed Release(Dr/Ec) 20 mg PO DAILY simvastatin 40 mg Tablet 40 mg PO QPM Referrals: Santana Rae MD [Physician] - 03/17/18 3:15 pm (follow up next week with the doctor. If you can't make the the appointment please call the office to reschedule appointment.) UNKNOWN, [Primary Care Provider] - See Instructions (follow up with pcp in 1-2 weeks ) - Discharge Instructions Patient Printed Instructions: Benzonatate (By mouth), Prednisone (By mouth), Budesonide/Formoterol (By breathing), Moderate and Severe Persistent Asthma (DC) - Post Discharge Care Plan Care Plan Goals: Your Health Problems: Goals to Promote Your Health: * To prevent worsening of your condition * To maintain your health at the optimal level Directions to Meet Your Goals: * Take your medications as prescribed * Follow your dietary instruction * Follow activity as directed * Keep your appointments as scheduled * Take your immunizations and boosters as scheduled * If your symptoms worsen call your PCP * If no PCP go to Urgent Care or Emergency Room Smoking is dangerous to your health. Avoid second hand smoke. You may reach the 24-hour crisis hotline for domestic abuse at .
== END 2018-03-12 12:10 | disposition home or self-care (01) ==
LOC: PHEDDLT 20:30 → HIMC 20:30 → INTOOBSV 03-08 03:30 → OBSVTOIN 03-08 03:30 → N04 03-08 04:38
PROVIDERS: ADMIT Family Medicine; ATTEND Family Medicine